=== PATIENT | male | born 1945 | race Caucasian/White ===

== ENCOUNTER 2019-04-02 14:23 | Emergency (ER) | payer MEDICARE, OTHER, SELFPAY ==
[2019-04-02 14:27] VITALS: BP 105/70; PULSE 95; RESP 18; TEMP 36.6; O2SAT 96
--- NOTE | 2019-04-02 14:34 | DI.RAD.S_ITS ---
PROCEDURE: XR ANKLE RT MIN 3V INDICATIONS: rolled 6 weeks ago in [place]. continued pain. TECHNIQUE: 3 views of the ankle were acquired. COMPARISON: None. FINDINGS: Bones: There is linear irregularity along the distal fibula. Ankle mortise is normally aligned. No suspicious bony lesions. Soft tissues: Bimalleolar soft tissue edema. Achilles tendon appears normal. IMPRESSION: Bimalleolar soft tissue edema. Linear distal fibular irregularity suggestive of avulsion injury of indeterminate age. Dictated by: Lazara Parker M.D. on 04/02/2019 at 14:51 Approved by: Lazara Parker M.D. on 04/02/2019 at 14:54
--- NOTE | 2019-04-02 16:56 | ED.LOWEXIN ---
HPI - Extremity Injury (Lower) <JEANCARLOS Castañeda - Last Filed: 04/02/19 21:31> General Chief Complaint: Extremity Injury, Lower Stated Complaint: Rolled 6 wks ago still causing pain Time Seen by Provider: 04/02/19 15:54 Source: patient Mode of arrival: ambulatory Limitations: no limitations History of Present Illness HPI Narrative: This is a 74-year-old male, nonsmoker, presents with spouse chief complain of right ankle pain. Patient reports he had inverted right ankle about 6 weeks ago when he was residing in [place]. Patient did not seek medical attention at this time. Patient states the bruise on the affected side had improved but still has mild swelling. Patient reports currently has mild pain with rotation and weight-bearing on lateral malleoli area. Patient denies tingling or numbness at this time. Now patient and his spouse return to home in [place] and would like an evaluation on his ankle pain. Related Data Home Medications Medication Instructions Recorded Confirmed Blood Pressure Med 1 dose PO DAILY 04/02/19 04/02/19 Foot Pain Med 1 dose PO DAILY 04/02/19 04/02/19 Neuropathy Pain 1 dose PO DAILY 04/02/19 04/02/19 Allergies Allergy/AdvReac Type Severity Reaction Status Date / Time No Known Drug Allergies Allergy Verified 04/02/19 16:08 Review of Systems <JEANCARLOS Castañeda - Last Filed: 04/02/19 21:31> Review of Systems ROS Unobtainable: All systems reviewed & are unremarkable except as noted in HPI and below PFSH <JEANCARLOS Castañeda - Last Filed: 04/02/19 21:31> Medical History Basal cell carcinoma (Acute) Exam <JEANCARLOS Castañeda - Last Filed: 04/02/19 21:31> Narrative Exam Narrative: General appearance: well developed, well nourished, in no acute distress. Head: normocephalic, atraumatic, no scalp lesions, non-tender. Eye: pupil equal, round. EOMI. Nose: nares patent. Oral: mucosa moist. Neck/Thyroid: neck supple, full range of motion, no visible masses. Skin: no suspicious rashes, lesions over visible areas. Warm and dry. Heart: no clubbing, no cyanosis, no edema. Lungs: Breathing even and unlabored. No stridor. No accessory muscles used. Chest: normal shape and expansion. Abdomen: non-obese, non-distended. Neurologic: alert and oriented. 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 Psych: good eye contact, normal affect. Initial Vital Signs Initial Vital Signs: Vital Signs Temperature 97.9 F 04/02/19 14:27 Pulse Rate 95 H 04/02/19 14:27 Respiratory Rate 18 04/02/19 14:27 Blood Pressure 105/70 04/02/19 14:27 Pulse Oximetry 96 04/02/19 14:27 Extrem Right upper extremity: normal to inspection and full ROM Left upper extremity: normal to inspection and full ROM Right lower extremity: ankle Details: normal to inspection, tenderness Location: of the lateral malleolus, swelling (Mild) Details: laterally (Ankle), normal ROM and achilles tendon exam abnormal; no unusual warmth, no ecchymosis and no crepitus Left lower extremity: normal to inspection and full ROM <Laura Perez DO - Last Filed: 04/03/19 07:42> Initial Vital Signs Initial Vital Signs: Vital Signs Temperature 97.9 F 04/02/19 14:27 Pulse Rate 95 H 04/02/19 14:27 Respiratory Rate 18 04/02/19 14:27 Blood Pressure 105/70 04/02/19 14:27 Pulse Oximetry 96 04/02/19 14:27 Scores <JEANCARLOS Castañeda - Last Filed: 04/02/19 21:31> GCS Recluse coma scale eye opening: Spontaneous Rachael coma scale verbal response: Orientated Rachael coma scale motor response: Obey commands Rachael coma scale total score: 15 Course <JEANCARLOS Castañeda - Last Filed: 04/02/19 21:31> Orders Ordered: ED Orders 04/02/19 14:34 XR ankle RT min 3V Stat Vital Signs Vital signs: Vital Signs - 8 hr 04/02/19 14:27 04/02/19 17:56 Temperature 97.9 F Pulse Rate 95 H 83 Respiratory Rate 18 17 Blood Pressure 105/70 Blood Pressure [Left Arm] 136/81 Pulse Oximetry 96 97 <Laura Perez DO - Last Filed: 04/03/19 07:42> Orders Ordered: ED Orders 04/02/19 14:34 XR ankle RT min 3V Stat Vital Signs Vital signs: Vital Signs - 8 hr 04/02/19 14:27 04/02/19 17:56 Temperature 97.9 F Pulse Rate 95 H 83 Respiratory Rate 18 17 Blood Pressure 105/70 Blood Pressure [Left Arm] 136/81 Pulse Oximetry 96 97 MDM - Extremity Injury (Lower) <Jaxon DivineJEANCARLOS - Last Filed: 04/02/19 21:31> Differential Diagnosis Differential diagnosis: Likely ankle sprain and strain and ankle fracture Medical Records Attestation: I reviewed the patient's medical records. Imaging Data XR-Ankle RT: Radiologist's impression: [address] [address] XRay Report Signed Patient: Tanner Liriano WMR#: [id number] : 7Acct:[id number] Age/Sex: 74 / MDate of Service: 04/02/19 Loc: ED Accession Number: [id number] Procedure: XR ankle RT min 3V Ordering Provider: Laura Perez D.O. PROCEDURE: XR ANKLE RT MIN 3V INDICATIONS: rolled 6 weeks ago in [place]. continued pain. TECHNIQUE: 3 views of the ankle were acquired. COMPARISON: None. FINDINGS: Bones: There is linear irregularity along the distal fibula. Ankle mortise is normally aligned. No suspicious bony lesions. Soft tissues: Bimalleolar soft tissue edema. Achilles tendon appears normal. IMPRESSION: Bimalleolar soft tissue edema. Linear distal fibular irregularity suggestive of avulsion injury of indeterminate age. Dictated by: Lazara Parker M.D. on 04/02/2019 at 14:51 Approved by: Lazara Parker M.D. on 04/02/2019 at 14:54 MDM Narrative Medical decision making narrative: This patient had injured right ankle by inverting it 6 weeks ago. Distal neurovascular exam was intact. The patient is able to dorsiflex, plantar flex, rotate, move all toes on his right foot with active and passive range of motion. X-ray test does not show acute findings today. However, there is a linear irregularity along the distal fibula which suggest of previous injury with by malleolus soft tissue edema. Patient was offered with Moe wrap for comfort, swelling, discomfort but patient declined stating she he already has of ankle sleeve. Patient advise elevation, activity as tolerated, to take [id number] Tylenol as needed for comfort and verbalized understanding and agrees with treatment plan. [facility] for number was provided to set up an PCP. Discharge Plan Departure Patient Disposition: Home Clinical Impression: Ankle sprain and strain Discharge Date/Time: 04/02/19 18:03 Instructions: DI for Ankle Sprain Activity Restrictions/Additional Instructions: You have been diagnosed with [ankle sprain. There is no acute findings such as fracture or dislocation according to x-ray test today]. What to do: *Take your medications as directed. Since you can't take NSAIDS, please take [id number] Tylenol as needed for discomfort. Elevated affected foot for swelling, discomfort. Use ankle support as needed for discomfort and swelling with ambulation. *Follow up with your primary care provider in 2-3 days, call for an appointment. Let them know you were seen in the ED and that we asked you to be seen in follow up. *Return to ED if you have any new, worsening, or concerning symptoms, such as [increasing pain, tingling numbness, weakness to lower limb, chest pain, difficulty breathing, any acute concerns. Please call referral line for finding a new primary care physician to coordinate you're medical care.]. Prescriptions: No Action Blood Pressure Med 1 dose PO DAILY RF: 0 Foot Pain Med 1 dose PO DAILY RF: 0 Neuropathy Pain 1 dose PO DAILY RF: 0 Referrals: [facility] [Outside]
[2019-04-02 17:56] VITALS: BP 136/81; PULSE 83; RESP 17; O2SAT 97
== END 2019-04-02 18:03 | disposition home or self-care (01) ==
PROVIDERS: Emergency Provider Nurse Practitioner Family
DX: S93.401A Sprain of unspecified ligament of right ankle, initial encounter (principal); S96.911A Strain of unspecified muscle and tendon at ankle and foot level, right foot, initial encounter
CPT/HCPCS: 73610; 99282; 99283

== ENCOUNTER → 2020-02-20 16:28 | Outpatient (CLI) | payer MEDICARE, OTHER, SELFPAY ==
[2020-02-20 18:04] LABS: BUN Creatinine Ratio 9.4 (6-22); Blood Urea Nitrogen 28 mg/dL (9-20); Carbon Dioxide 27 mmol/L (22-32); Chloride 106 mmol/L (98-107); Estimated Glomerular Filt Rate 20.8 mL/min (>60); Glucose 128 mg/dL (80-110); HEMOLYSIS < 15 (0-50); Potassium 4.4 mmol/L (3.4-5.1); Sodium 138 mmol/L (137-145)
[2020-02-20 18:26] LABS: Calcium 12.8 mg/dL (8.4-10.2)
[2020-02-21 06:36] LABS: Parathyroid Hormone Int 46 pg/mL (15-65)
[2020-02-24 13:13] LABS: Albumin 3.6 g/dL (2.9-4.4); Alpha-1-Globulin 0.2 g/dL (0.0-0.4); Alpha-2-Globulin 0.7 g/dL (0.4-1.0); Globulin Total 2.7 g/dL (2.2-3.9); Protein, Total 6.3 g/dL (6.0-8.5)
== END ==
PROVIDERS: PCP Internal Medicine; Referring Provider Internal Medicine; Visit Provider Internal Medicine
DX: N17.9 Acute kidney failure, unspecified (principal); E83.52 Hypercalcemia; D47.2 Monoclonal gammopathy
CPT/HCPCS: 36415; 80048; 82306; 83970; 84155; 84165

== ENCOUNTER → 2020-07-05 19:41 | Outpatient (ROUT) | payer MEDICARE, OTHER, SELFPAY ==
[2020-07-05 20:07] LABS: Add Manual Diff / Slide Review NO; Basophils Absolute Auto 0 /uL (0-100); Basophils Percent Auto 0.5 % (0-2); Eosinophils Absolute Auto 0 /uL (0-450); Eosinophils Percent Auto 0.4 % (2-4); Hematocrit 32.7 % (41-53); Hemoglobin 10.7 g/dL (13.5-17.5); Lymphocytes Absolute Auto 600 /uL (1100-4500); Lymphocytes Percent Auto 6.3 % (25-40); Mean Corpuscular HGB Conc 32.7 % (30-36); Mean Corpuscular Hemoglobin 31.5 PG (26-34); Mean Corpuscular Volume 96.1 fL (80-100); Monocytes Absolute Auto 400 /uL (0-900); Monocytes Percent Auto 4.2 % (3-14); Neutrophils Absolute Auto 7900 /uL (1500-7000); Neutrophils Percent Auto 88.6 % (50-75); Platelet Count 187 X10^3/uL (150-400); Red Cell Distribution Width 14.8 % (11.6-14.8); White Blood Cell Count 8.9 X10^3/uL (4.5-11.0)
[2020-07-05 20:12] LABS: BUN Creatinine Ratio 16.1 (6-22); Blood Urea Nitrogen 29 mg/dL (9-20); Calcium 9.9 mg/dL (8.4-10.2); Carbon Dioxide 32 mmol/L (22-32); Chloride 104 mmol/L (98-107); Estimated Glomerular Filt Rate 37.2 mL/min (>60); Glucose 132 mg/dL (80-110); HEMOLYSIS < 15 (0-50); Potassium 4.6 mmol/L (3.4-5.1); Sodium 138 mmol/L (137-145)
== END ==
PROVIDERS: PCP Internal Medicine; Visit Provider Internal Medicine
DX: D86.9 Sarcoidosis, unspecified (principal); N18.4 Chronic kidney disease, stage 4 (severe)
CPT/HCPCS: 80048; 85025

== ENCOUNTER → 2020-12-02 14:25 | Outpatient (ROUT) | payer MEDICARE, OTHER, SELFPAY ==
[2020-12-02 14:51] LABS: Hemoglobin A1C% w Est Avg Glu 5.8 % (4.0-6.0)
[2020-12-02 15:04] LABS: BUN Creatinine Ratio 18.9 (6-22); Blood Urea Nitrogen 35 mg/dL (9-20); Calcium 10.1 mg/dL (8.4-10.2); Carbon Dioxide 28 mmol/L (22-32); Chloride 104 mmol/L (98-107); Glucose 109 mg/dL (80-110); HEMOLYSIS < 15 (0-50); Potassium 4.3 mmol/L (3.4-5.1); Sodium 140 mmol/L (137-145)
== END ==
PROVIDERS: PCP Internal Medicine; Visit Provider Internal Medicine
DX: R73.01 Impaired fasting glucose (principal); N18.4 Chronic kidney disease, stage 4 (severe)
CPT/HCPCS: 80048; 83036